=== PATIENT | male | born 1990 | race Hispanic/Latino ===

== ENCOUNTER 2016-10-22 07:58 | Emergency (ER) | payer OTHER ==
[~2016-10-22 07:58] MED LIST: BACT800T5 PO; PERCOCET PO
[2016-10-22 09:33] LABS: ANION GAP 7 MEQ/L (8-16); BLOOD UREA NITROGEN 17 MG/DL (7-18); CALCIUM LEVEL 9.4 MG/DL (8.5-10.1); CARBON DIOXIDE LEVEL 29 MEQ/L (21-32); CHLORIDE LEVEL 106 MEQ/L (98-107); CREATININE FOR GFR 0.95 MG/DL (0.70-1.30); GLOMERULAR FILTRATION RATE > 60.0 (>60); GLUCOSE, FASTING 94 MG/DL (70-105); POTASSIUM SERUM 4.3 MEQ/L (3.5-5.1); SODIUM LEVEL 142 MEQ/L (136-145)
--- NOTE | 2016-10-22 10:00 | EDDOCDS ---
Physician Documentation [facility] Name: Kvng Peguero Age: 26 yrs Sex: Male : 1990 Arrival Date: 10/22/2016 Time: 07:58 Bed I2 / M2 Private MD: Disposition: 10/22/16 09:49 Discharged to Home/Self Care. Impression: Strain of muscle, fascia and tendon at neck level, Muscle spasm. - Condition is Stable. - Discharge Instructions: Torticollis, Acute, Heat Therapy. - Prescriptions for Robaxin 500 mg Oral Tablet - take 2 tablets by ORAL route every 6 hours As needed; 20 tablet. Ultram 50 mg Oral Tablet - take 1 tablet by ORAL route every 6 hours As needed MDD: 4 tabs; 12 tablet. - Medication Reconciliation, Local Pharmacy Hours form. - Follow up: Kain Sheets [facility]; When: Call to arrange an appointment; Reason: Recheck today's complaints. - Problem is new. - Symptoms have improved. - Notes: take medications ONLY as directed. call to make a follow up appointment with your physician Historical: - Allergies: no known allergies; - Home Meds: 1. naproxen 4 gm Oral TbEC (Last dose: 10/21/2016 18:30) 2. albuterol sulfate 90 mcg/actuation Inhl aepb prn - PMHx: Asthma; - PSHx: circumscision; - Social history: Smoking status: Patient states was never smoker of tobacco. No barriers to communication noted, The patient speaks fluent Kyrgyz. - Family history: Not pertinent. - : The pt / caregiver states he / she is not on anticoagulants. Home medication list is obtained from the patient. - Exposure Risk Screening:: None identified. Vital Signs: 10/22 08:06 BP 154 / 95; Pulse 73; Resp 18; Temp 96.8(O); Pulse Ox 97% on R/A; Weight 106.59 kg / jjr 234.99 lbs (R); Height 5 ft. 8 in. (172.72 cm) (R); Pain 8/10; 09:44 BP 138 / 77; Pulse 86; Resp 18; Pulse Ox 98% on R/A; Pain 8/10; srm 08:06 Body Mass Index 35.73 (106.59 kg, 172.72 cm) jjr MDM: 08:36 [facility] Payment Agreement was scanned into [employer] and attached to record. lg 08:38 Financial registration complete. lg 08:49 Apply Soft Collar to Patient. ordered. ar2 08:49 Diazepam 5 mg IM once ordered. ar2 08:49 BMP Ordered. EDMS 09:47 BMP Reviewed. ar2 Administered Medications: 08:54 Drug: Diazepam 5 mg [diazepam 5 mg/mL injection syringe (1 mL)] Route: IM; Site: right srm deltoid; 09:44 Follow up: BP 138 / 77; Pulse 86 bpm; Resp 18 bpm; Pulse Ox 98% RA; Pain 8 Adult; pt srm awakened when nurse walked in. astates pain still a 04/28 Signatures: Dispatcher [employer] EDMS Pat Serrato RN RN srm Robina Mcmanus, Reg Reg lg Joana Hurt RN RN jjr Humza Martínez, PA-C PA-C ar2 Jossie Valle,RN RN kc3 The chart was reviewed and I authenticate all verbal orders and agree with the evaluation and treatment provided.Attachments: 08:36 [facility] Payment Agreement lg MTDD
--- NOTE | 2016-10-22 10:00 | EDDOCDS ---
Nurse's Notes [facility] Name: Kvng Peguero Age: 26 yrs Sex: Male : 1990 Arrival Date: 10/22/2016 Time: 07:58 Bed I2 / M2 Private MD: Diagnosis: Strain of muscle, fascia and tendon at neck level;Muscle spasm Presentation: 10/22 08:04 Presenting complaint: Patient states: slipped on ice last evening caught himself but jjr heard a pop to cervical spine followed by stiff neck during and after fall denies LOC. Risk Factors No acute neurological deficit is noted. Adult Sepsis Screening: The patient does not have new or worsening altered mentation. Patient's respiratory rate is less than 22. Systolic blood pressure is greater than 100. Patient has a qSOFA score of 0- Negative Sepsis Screen. Suicide/Homicide risk assessment- the patient denies having any suicidal and/or homicidal ideations and does not present with any other emotional, behavioral or mental health complaints. 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 Transition of care: patient was not received from another setting of care. 08:04 Acuity: ANGELES Level 4 jjr 08:04 Method Of Arrival: Walkin/Carried/Asstd jjr Triage Assessment: 08:08 General: Appears in no apparent distress. General: cervical collar applied. Pain: jjr Location: back of neck Pain currently is 8 out of 10 on a pain scale. Pt Declines HIV testing. Musculoskeletal: Reports pain in back of neck. Historical: - Allergies: no known allergies; - Home Meds: 1. naproxen 4 gm Oral TbEC (Last dose: 10/21/2016 18:30) 2. albuterol sulfate 90 mcg/actuation Inhl aepb prn - PMHx: Asthma; - PSHx: circumscision; - Social history: Smoking status: Patient states was never smoker of tobacco. No barriers to communication noted, The patient speaks fluent Upper Sorbian. - Family history: Not pertinent. - : The pt / caregiver states he / she is not on anticoagulants. Home medication list is obtained from the patient. - Exposure Risk Screening:: None identified. Screenin:15 Screening information is obtained from the patient. Fall risk: No risks identified. srm Assistance ADL's: requires no assistance with activities of daily living. Abuse/DV Screen: The patient / caregiver reports he/she is: not in a situation that causes fear, pain or injury. Nutritional screening: No deficits noted. Advance Directives: There is no active DNR order. home support is adequate. Assessment: 08:15 General: Appears in no apparent distress, Behavior is appropriate for age, cooperative. srm Neurological: Level of Consciousness is awake, alert, Oriented to person, place, time, Moves all extremities. Full function Gait is steady, Speech is normal, Facial symmetry appears normal. Respiratory: No deficits noted. GI: No deficits noted. Musculoskeletal: cervical spine is tender. 09:00 General: Appears in no apparent distress, comfortable, Behavior is appropriate for age, kc3 cooperative. Pain: Location: back of neck. Neurological: Level of Consciousness is awake, alert, obeys commands, Oriented to person, place, time. Respiratory: Respiratory effort is even, unlabored. Derm: Skin is pink, warm & dry. 09:58 General: Appears in no apparent distress, comfortable, Behavior is appropriate for age, kc3 cooperative. Pain: Location: back of neck. Neurological: No deficits noted. Respiratory: No deficits noted. Derm: Skin is pink, warm & dry. Vital Signs: 08:06 BP 154 / 95; Pulse 73; Resp 18; Temp 96.8(O); Pulse Ox 97% on R/A; Weight 106.59 kg jr (R); Height 5 ft. 8 in. (172.72 cm) (R); Pain 8/10; 09:44 BP 138 / 77; Pulse 86; Resp 18; Pulse Ox 98% on R/A; Pain 8/10; srm 08:06 Body Mass Index 35.73 (106.59 kg, 172.72 cm) [facility] Vitals: 08:06 Log In Time: October 22, 2016 at 07:55. jr ED Course: 07:59 Patient visited by Angelia Ivan. mm15 07:59 Patient moved to Waiting mm15 08:04 Triage Initiated jjr 08:08 Patient moved to I2 / M2 jjr 08:15 The patient / caregiver is instructed regarding the plan of care and ED course. srm Accompanied by Friend, Patient has correct armband on for positive identification. 08:16 Patient visited by Pat Serrato RN. srm 08:23 Humza Martínez PA-C is PHCP. ar2 08:23 Jimbo Humphreys MD is Attending Physician. ar2 08:36 [facility] Payment Agreement was scanned into [employer] and attached to record. lg 08:38 Patient visited by Humza Martínez PA-C. ar2 08:54 Patient visited by Pat Serrato RN. srm 09:01 BMP Sent. dem1 09:44 Patient visited by Pat Serrato RN. srm 09:48 [facility] is Referral Physician. ar2 09:59 No IV's were initiated during this patient's visit. No procedures done that require kc3 assistance. Administered Medications: 08:54 Drug: Diazepam 5 mg [diazepam 5 mg/mL injection syringe (1 mL)] Route: IM; Site: right srm deltoid; 09:44 Follow up: BP 138 / 77; Pulse 86 bpm; Resp 18 bpm; Pulse Ox 98% RA; Pain 8/10 Adult; pt srm awakened when nurse walked in. astates pain still a 8/10 Intake: Order Results: Lab Order: BMP; SPEC'M 10/22/16 09:01 Test: GLUCOSE, FASTING; Value: 94; Range: 70-105; Units: MG/DL; Status: F Test: BLOOD UREA NITROGEN; Value: 17; Range: 7-18; Units: MG/DL; Status: F Test: CREATININE FOR GFR; Value: 0.95; Range: 0.70-1.30; Units: MG/DL; Status: F Test: GLOMERULAR FILTRATION RATE; Value: > 60.0; Range: >60; Status: F Test: SODIUM LEVEL; Value: 142; Range: 136-145; Units: MEQ/L; Status: F Test: POTASSIUM SERUM; Value: 4.3; Range: 3.5-5.1; Units: MEQ/L; Status: F Test: CHLORIDE LEVEL; Value: 106; Range: 98-107; Units: MEQ/L; Status: F Test: CARBON DIOXIDE LEVEL; Value: 29; Range: 21-32; Units: MEQ/L; Status: F Test: ANION GAP; Value: 7; Range: 8-16; Abnormal: Below low normal; Units: MEQ/L; Status: F Test: CALCIUM LEVEL; Value: 9.4; Range: 8.5-10.1; Units: MG/DL; Status: F Test Note: ; Units are mL/min/1.73 m2 Chronic Kidney Disease Staging per NKF: Stage I & II GFR >=60 Normal to Mildly Decreased Stage III GFR 30-59 Moderately Decreased Stage IV GFR 15-29 Severely Decreased Stage V GFR <15 Very Little GFR Left ESRD GFR <15 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 ar2 09:58 Discharge Assessment: Patient awake, alert and oriented x 3. No cognitive and/or kc3 functional deficits noted. Patient verbalized understanding of disposition instructions. patient administered narcotics - yes. Pt provided with safe discharge. The following High Risk Discharge criteria are identified: None. Discharged to home ambulatory. Condition: stable. Discharge instructions given to patient, Instructed on discharge instructions, follow up and referral plans. medication usage, Demonstrated understanding of instructions, medications, Pt was receptive of discharge instructions/ teaching. Prescriptions given X 2. No special radiology studies were completed. Property :Personal belongings accompany Pt. 10:00 Patient left the ED. kc3 Signatures: Pat Serrato, RN RN Robina Haywood, Charbel Reg lg Joana Hurt, RN RN Humza Dubon, PA-Pepe PA-Pepe ar2 Brianna Whittaker1 Angelia Ivan mm15 Jossie Valle,RN RN kc3 MTDD
--- NOTE | 2016-10-24 11:00 | EDDOCDS ---
Physician Documentation [facility] Name: Kvng Peguero Age: 26 yrs Sex: Male : 1990 Arrival Date: 10/22/2016 Time: 07:58 Bed I2 / M2 Private MD: Disposition: 10/22/16 09:49 Discharged to Home/Self Care. Impression: Strain of muscle, fascia and tendon at neck level, Muscle spasm. - Condition is Stable. - Discharge Instructions: Torticollis, Acute, Heat Therapy. - Prescriptions for Robaxin 500 mg Oral Tablet - take 2 tablets by ORAL route every 6 hours As needed; 20 tablet. Ultram 50 mg Oral Tablet - take 1 tablet by ORAL route every 6 hours As needed MDD: 4 tabs; 12 tablet. - Medication Reconciliation, Local Pharmacy Hours form. - Follow up: Kain Sheets [facility]; When: Call to arrange an appointment; Reason: Recheck today's complaints. - Problem is new. - Symptoms have improved. - Notes: take medications ONLY as directed. call to make a follow up appointment with your physician Historical: - Allergies: no known allergies; - Home Meds: 1. naproxen 4 gm Oral TbEC (Last dose: 10/21/2016 18:30) 2. albuterol sulfate 90 mcg/actuation Inhl aepb prn - PMHx: Asthma; - PSHx: circumscision; - Social history: Smoking status: Patient states was never smoker of tobacco. No barriers to communication noted, The patient speaks fluent French. - Family history: Not pertinent. - : The pt / caregiver states he / she is not on anticoagulants. Home medication list is obtained from the patient. - Exposure Risk Screening:: None identified. Vital Signs: 10/22 08:06 BP 154 / 95; Pulse 73; Resp 18; Temp 96.8(O); Pulse Ox 97% on R/A; Weight 106.59 kg / jjr 234.99 lbs (R); Height 5 ft. 8 in. (172.72 cm) (R); Pain 8/10; 09:44 BP 138 / 77; Pulse 86; Resp 18; Pulse Ox 98% on R/A; Pain 8/10; srm 08:06 Body Mass Index 35.73 (106.59 kg, 172.72 cm) jjr MDM: 08:36 [facility] Payment Agreement was scanned into [employer] and attached to record. lg 08:38 Financial registration complete. lg 08:49 Apply Soft Collar to Patient. ordered. ar2 08:49 Diazepam 5 mg IM once ordered. ar2 08:49 BMP Ordered. EDMS 09:47 BMP Reviewed. ar2 15:01 T-Sheet-- Draft Copy was scanned into [employer] and attached to record. gb Administered Medications: 08:54 Drug: Diazepam 5 mg [diazepam 5 mg/mL injection syringe (1 mL)] Route: IM; Site: right srm deltoid; 09:44 Follow up: BP 138 / 77; Pulse 86 bpm; Resp 18 bpm; Pulse Ox 98% RA; Pain 8/10 Adult; pt srm awakened when nurse walked in. astates pain still a 810 Signatures: Dispatcher [employer] EDMS Pat Serrato RN RN srm Urszula Giang, Reg Reg gb Robina Mcmanus, Reg Reg lg Joana Hurt RN RN jjr Humza Martínez, PA-C PA-C ar2 Jossie Valle,CARROLL RN kc3 The chart was reviewed and I authenticate all verbal orders and agree with the evaluation and treatment provided.Attachments: 08:36 [facility] Payment Agreement lg 15:01 T-Sheet-- Draft Copy gb Chart Complete MTDD
--- NOTE | 2016-10-24 11:00 | EDDOCDS ---
Physician Documentation [facility] Name: Kvng Peguero Age: 26 yrs Sex: Male : 1990 Arrival Date: 10/22/2016 Time: 07:58 Bed I2 / M2 Private MD: Disposition: 10/22/16 09:49 Discharged to Home/Self Care. Impression: Strain of muscle, fascia and tendon at neck level, Muscle spasm. - Condition is Stable. - Discharge Instructions: Torticollis, Acute, Heat Therapy. - Prescriptions for Robaxin 500 mg Oral Tablet - take 2 tablets by ORAL route every 6 hours As needed; 20 tablet. Ultram 50 mg Oral Tablet - take 1 tablet by ORAL route every 6 hours As needed MDD: 4 tabs; 12 tablet. - Medication Reconciliation, Local Pharmacy Hours form. - Follow up: Kain Sheets [facility]; When: Call to arrange an appointment; Reason: Recheck today's complaints. - Problem is new. - Symptoms have improved. - Notes: take medications ONLY as directed. call to make a follow up appointment with your physician Historical: - Allergies: no known allergies; - Home Meds: 1. naproxen 4 gm Oral TbEC (Last dose: 10/21/2016 18:30) 2. albuterol sulfate 90 mcg/actuation Inhl aepb prn - PMHx: Asthma; - PSHx: circumscision; - Social history: Smoking status: Patient states was never smoker of tobacco. No barriers to communication noted, The patient speaks fluent Uzbek. - Family history: Not pertinent. - : The pt / caregiver states he / she is not on anticoagulants. Home medication list is obtained from the patient. - Exposure Risk Screening:: None identified. Vital Signs: 10/22 08:06 BP 154 / 95; Pulse 73; Resp 18; Temp 96.8(O); Pulse Ox 97% on R/A; Weight 106.59 kg / jjr 234.99 lbs (R); Height 5 ft. 8 in. (172.72 cm) (R); Pain 8/10; 09:44 BP 138 / 77; Pulse 86; Resp 18; Pulse Ox 98% on R/A; Pain 8/10; srm 08:06 Body Mass Index 35.73 (106.59 kg, 172.72 cm) jjr MDM: 08:36 [facility] Payment Agreement was scanned into [employer] and attached to record. lg 08:38 Financial registration complete. lg 08:49 Apply Soft Collar to Patient. ordered. ar2 08:49 Diazepam 5 mg IM once ordered. ar2 08:49 BMP Ordered. EDMS 09:47 BMP Reviewed. ar2 15:01 T-Sheet-- Draft Copy was scanned into [employer] and attached to record. gb Administered Medications: 08:54 Drug: Diazepam 5 mg [diazepam 5 mg/mL injection syringe (1 mL)] Route: IM; Site: right srm deltoid; 09:44 Follow up: BP 138 / 77; Pulse 86 bpm; Resp 18 bpm; Pulse Ox 98% RA; Pain 8/10 Adult; pt srm awakened when nurse walked in. astates pain still a 810 Signatures: Dispatcher [employer] EDMS Pat Serrato RN RN srm Urszula Giang, Reg Reg gb Robina Mcmanus, Reg Reg lg Joana Hurt RN RN jjr Humza Martínez, PA-C PA-C ar2 Jossie Valle,CARROLL RN kc3 The chart was reviewed and I authenticate all verbal orders and agree with the evaluation and treatment provided.Attachments: 08:36 [facility] Payment Agreement lg 15:01 T-Sheet-- Draft Copy gb Chart Complete MTDD
--- NOTE | 2016-10-24 11:00 | EDDOCDS ---
Nurse's Notes [facility] Name: Kvng Peguero Age: 26 yrs Sex: Male : 1990 Arrival Date: 10/22/2016 Time: 07:58 Bed I2 / M2 Private MD: Diagnosis: Strain of muscle, fascia and tendon at neck level;Muscle spasm Presentation: 10/22 08:04 Presenting complaint: Patient states: slipped on ice last evening caught himself but jjr heard a pop to cervical spine followed by stiff neck during and after fall denies LOC. Risk Factors No acute neurological deficit is noted. Adult Sepsis Screening: The patient does not have new or worsening altered mentation. Patient's respiratory rate is less than 22. Systolic blood pressure is greater than 100. Patient has a qSOFA score of 0- Negative Sepsis Screen. Suicide/Homicide risk assessment- the patient denies having any suicidal and/or homicidal ideations and does not present with any other emotional, behavioral or mental health complaints. 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 Transition of care: patient was not received from another setting of care. 08:04 Acuity: ANGELES Level 4 jjr 08:04 Method Of Arrival: Walkin/Carried/Asstd jjr Triage Assessment: 08:08 General: Appears in no apparent distress. General: cervical collar applied. Pain: jjr Location: back of neck Pain currently is 8 out of 10 on a pain scale. Pt Declines HIV testing. Musculoskeletal: Reports pain in back of neck. Historical: - Allergies: no known allergies; - Home Meds: 1. naproxen 4 gm Oral TbEC (Last dose: 10/21/2016 18:30) 2. albuterol sulfate 90 mcg/actuation Inhl aepb prn - PMHx: Asthma; - PSHx: circumscision; - Social history: Smoking status: Patient states was never smoker of tobacco. No barriers to communication noted, The patient speaks fluent Bengali. - Family history: Not pertinent. - : The pt / caregiver states he / she is not on anticoagulants. Home medication list is obtained from the patient. - Exposure Risk Screening:: None identified. Screenin:15 Screening information is obtained from the patient. Fall risk: No risks identified. srm Assistance ADL's: requires no assistance with activities of daily living. Abuse/DV Screen: The patient / caregiver reports he/she is: not in a situation that causes fear, pain or injury. Nutritional screening: No deficits noted. Advance Directives: There is no active DNR order. home support is adequate. Assessment: 08:15 General: Appears in no apparent distress, Behavior is appropriate for age, cooperative. srm Neurological: Level of Consciousness is awake, alert, Oriented to person, place, time, Moves all extremities. Full function Gait is steady, Speech is normal, Facial symmetry appears normal. Respiratory: No deficits noted. GI: No deficits noted. Musculoskeletal: cervical spine is tender. 09:00 General: Appears in no apparent distress, comfortable, Behavior is appropriate for age, kc3 cooperative. Pain: Location: back of neck. Neurological: Level of Consciousness is awake, alert, obeys commands, Oriented to person, place, time. Respiratory: Respiratory effort is even, unlabored. Derm: Skin is pink, warm & dry. 09:58 General: Appears in no apparent distress, comfortable, Behavior is appropriate for age, kc3 cooperative. Pain: Location: back of neck. Neurological: No deficits noted. Respiratory: No deficits noted. Derm: Skin is pink, warm & dry. Vital Signs: 08:06 BP 154 / 95; Pulse 73; Resp 18; Temp 96.8(O); Pulse Ox 97% on R/A; Weight 106.59 kg jr (R); Height 5 ft. 8 in. (172.72 cm) (R); Pain 8/10; 09:44 BP 138 / 77; Pulse 86; Resp 18; Pulse Ox 98% on R/A; Pain 8/10; srm 08:06 Body Mass Index 35.73 (106.59 kg, 172.72 cm) [facility] Vitals: 08:06 Log In Time: October 22, 2016 at 07:55. jr ED Course: 07:59 Patient visited by Angelia Ivan. mm15 07:59 Patient moved to Waiting mm15 08:04 Triage Initiated jjr 08:08 Patient moved to I2 / M2 jjr 08:15 The patient / caregiver is instructed regarding the plan of care and ED course. srm Accompanied by Friend, Patient has correct armband on for positive identification. 08:16 Patient visited by Pat Serrato RN. srm 08:23 Humza Martínez PA-C is PHCP. ar2 08:23 Jimbo Humphreys MD is Attending Physician. ar2 08:36 [facility] Payment Agreement was scanned into [employer] and attached to record. lg 08:38 Patient visited by Humza Martínez PA-C. ar2 08:54 Patient visited by Pat Serrato RN. srm 09:01 BMP Sent. dem1 09:44 Patient visited by Pat Serrato RN. srm 09:48 [facility] is Referral Physician. ar2 09:59 No IV's were initiated during this patient's visit. No procedures done that require kc3 assistance. 15:01 T-Sheet-- Draft Copy was scanned into [employer] and attached to record. gb Administered Medications: 08:54 Drug: Diazepam 5 mg [diazepam 5 mg/mL injection syringe (1 mL)] Route: IM; Site: right srm deltoid; 09:44 Follow up: BP 138 / 77; Pulse 86 bpm; Resp 18 bpm; Pulse Ox 98% RA; Pain 8/10 Adult; pt srm awakened when nurse walked in. astates pain still a 8/10 Intake: Order Results: Lab Order: BMP; SPEC'M 10/22/16 09:01 Test: GLUCOSE, FASTING; Value: 94; Range: 70-105; Units: MG/DL; Status: F Test: BLOOD UREA NITROGEN; Value: 17; Range: 7-18; Units: MG/DL; Status: F Test: CREATININE FOR GFR; Value: 0.95; Range: 0.70-1.30; Units: MG/DL; Status: F Test: GLOMERULAR FILTRATION RATE; Value: > 60.0; Range: >60; Status: F Test: SODIUM LEVEL; Value: 142; Range: 136-145; Units: MEQ/L; Status: F Test: POTASSIUM SERUM; Value: 4.3; Range: 3.5-5.1; Units: MEQ/L; Status: F Test: CHLORIDE LEVEL; Value: 106; Range: 98-107; Units: MEQ/L; Status: F Test: CARBON DIOXIDE LEVEL; Value: 29; Range: 21-32; Units: MEQ/L; Status: F Test: ANION GAP; Value: 7; Range: 8-16; Abnormal: Below low normal; Units: MEQ/L; Status: F Test: CALCIUM LEVEL; Value: 9.4; Range: 8.5-10.1; Units: MG/DL; Status: F Test Note: ; Units are mL/min/1.73 m2 Chronic Kidney Disease Staging per NKF: Stage I & II GFR >=60 Normal to Mildly Decreased Stage III GFR 30-59 Moderately Decreased Stage IV GFR 15-29 Severely Decreased Stage V GFR <15 Very Little GFR Left ESRD GFR <15 on 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 ar2 09:58 Discharge Assessment: Patient awake, alert and oriented x 3. No cognitive and/or kc3 functional deficits noted. Patient verbalized understanding of disposition instructions. patient administered narcotics - yes. Pt provided with safe discharge. The following High Risk Discharge criteria are identified: None. Discharged to home ambulatory. Condition: stable. Discharge instructions given to patient, Instructed on discharge instructions, follow up and referral plans. medication usage, Demonstrated understanding of instructions, medications, Pt was receptive of discharge instructions/ teaching. Prescriptions given X 2. No special radiology studies were completed. Property :Personal belongings accompany Pt. 10:00 Patient left the ED. kc3 Signatures: Pat Serrato, RN RN [facility] Urszula Giang, Reg Reg gb Robina Mcmanus, Reg Reg lg Joana Hurt, CARROLL RN Humza Dubon, PA-C PA-C ar2 Brianna Whittaker1 Angelia Ivan mm15 Jossie Valle,CARROLL RN kc3 Chart Complete MTDD
== END 2016-10-22 10:00 | disposition home or self-care (01) ==
LOC: M ED 07:58
DX: S13.4XXA Sprain of ligaments of cervical spine, initial encounter (principal); W00.0XXA Fall on same level due to ice and snow, initial encounter; Y92.89 Other specified places as the place of occurrence of the external cause; Y93.01 Activity, walking, marching and hiking; Y99.8 Other external cause status; J45.909 Unspecified asthma, uncomplicated; Z79.51 Long term (current) use of inhaled steroids; Z79.1 Long term (current) use of non-steroidal anti-inflammatories (NSAID)
CPT/HCPCS: 36415; 80048; 96372; 99283; J3360